=== PATIENT | female | born 1965 | race African-American/Black ===

== ENCOUNTER 2016-12-24 07:08 | Emergency (ER) | payer OTHER ==
[~2016-12-24] VITALS: Ht 172.7 cm; Wt 117.9 kg
--- NOTE | ~2016-12-24 | EKG ---
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 : 1965 Requested By: Randi Ovalle Order Number: [id number] MD: Alfonso Charles Measurements Intervals [place] Rate: 63 P: 16 RI: 197 QRS: 13 QRSD: 93 T: -30 QT: 439 QTc: 450 Interpretive Statements Sinus rhythm Abnormal R-wave progression, early transition Nonspecific T abnormalities, diffuse leads Baseline wander in lead(s) V5 Compared to ECG 06/08/2011 13:16:28 No significant changes Electronically Signed On 12-24-2016 8:07:55 CDT by Alfonso Charles [email or web address] <ELECTRONICALLY SIGNED> By: Alfonso Charles MD 12/24/16806 7 7 Alfonso Charles MD /LILLIAN
[~2016-12-24 07:08] MED LIST: AZITHROMYCIN 2250 MG PO; BACTRIM DS TAB1 EACH PO; NAPROSYN500 MG PO; NO HOME MEDS; NORCO 5-325 TA1 EACH PO; NORFLEX100 MG PO; PERCOCET 5-3251 EACH PO; TUSSIONEX PENN473 ML PO; ULTRAM 50MG TAB50 MG PO; ZOFRAN ODT4 MG PO
[2016-12-24] MEDS ORDERED: NORVASC5 MG PO (07:29)
[2016-12-24] MEDS ORDERED: LOPRESSOR100 M1 PO (07:29)
[2016-12-24] MEDS ORDERED: METFORMIN HCL500 MG PO (07:29)
[2016-12-24] MEDS ORDERED: LOSARTAN POTASS50 MG PO (07:30)
[2016-12-24 07:40] LABS: BASOPHILS 1.3 % (0.0-2.0); HEMATOCRIT 40.5 % (37.0-47.0); HEMOGLOBIN 13.6 gm/dL (12.0-15.0); LYMPHOCYTES 40.7 % (24.0-44.0); MCH 27.2 pg (26.0-34.0); MCHC 33.6 g/dL (28.0-37.0); MCV 80.9 fL (80.0-100.0); MONOCYTES 8.5 % (1.0-8.0); PLATELET COUNT 315 thou/uL (150-400); POLYS 46.5 % (36.0-66.0); RDW 13.6 % (10.5-14.5); WBC 6.4 thou/uL (4.0-11.0)
[2016-12-24 07:51] LABS: ANION GAP 6 mmol/L (7-16); BUN 10 mg/dL (7-18); CHLORIDE 108 mmol/L (98-107); CO2 25 mmol/L (21-32); CREATININE 1.2 mg/dL (0.6-1.0); GLUCOSE 112 mg/dL (74-106); POTASSIUM 3.6 mmol/L (3.5-5.1); SODIUM 139 mmol/L (136-145)
[2016-12-24 07:52] LABS: MANUAL DIFF NO
[2016-12-24 08:00] LABS: TROPONIN-I < 0.04 ng/mL (<0.04-0.07)
[2016-12-24 08:17] LABS: ALBUMIN 3.5 g/dL (3.4-5.0); ALKALINE PHOSPHATASE 103 U/L (46-116); DIRECT BILIRUBIN < 0.1 mg/dL (<0.1-0.3); SGOT 13 U/L (15-37); SGPT 20 U/L (30-65); TOTAL BILIRUBIN 0.3 mg/dL (<0.1-1.0); TOTAL PROTEIN 7.7 g/dL (6.4-8.2)
[2016-12-24 10:01] VITALS: BP 128/87
== END 2016-12-24 10:03 | disposition home or self-care (01) ==
LOC: ER 07:08
PROVIDERS: Emergency Medicine
DX: R07.89 Other chest pain (principal); I10 Essential (primary) hypertension; Z90.710 Acquired absence of both cervix and uterus

== ENCOUNTER 2017-03-23 19:59 | Inpatient (IN) | payer OTHER ==
[~2017-03-23] VITALS: Ht 172.7 cm; Wt 125.6 kg
--- NOTE | ~2017-03-23 | S ---
[facility] [place] [address] SURGICAL PATH RPT PROCEDURE Name: RIAZ CALIX Room #: 437-P DIS IN M.R.#: [id number] Admission: 03/23/17 Date of : 61 Discharge: 03/26/17 Report #: [id number] Path Case #: [id number] PATHOLOGY REPORT COLLECTION DATE: 03/25/2017 RECEIVED DATE: 03/26/2017 SUBMITTING PHYS: Dr. Horace Regan OTHER PHYS: Dr. Sushma Fofana SPECIMEN(S) RECEIVED: A.Bx of polyp at mid ascending colon B.Bx of L colon * * * * * * * * * * * * FINAL DIAGNOSIS: A. Colonic mucosa "biopsy of polyp at mid ascending colon": - Tubular adenoma. - There is no evidence of high grade dysplasia or malignancy. B. Colonic mucosa "biopsy of left colon": - Hyalinized stroma with small tubular gland, with rare cryptitis, mild intramucosal hemorrhage and mild increase in lamina propria inflammation. See comment. COMMENT: The differential includes infectious/ focal active colitis and ischemic colitis There is no evidence of granulomas, adenomatous change or malignancy. Suggest clinical and endoscopic correlation. (MILAGROS:janel; 03/27/2017) PATHOLOGIST: Rudy Mascorro M.D. REPORT ELECTRONICALLY SIGNED BY: Rudy Mascorro M.D. DATE/TIME: 03/27/2017 13:03 * * * * * * * * * * * * GROSS PATHOLOGY: A. Received in formalin labeled "Riaz Calix, BX of polyp at mid ascending colon," is a segment of rivera soft tissue measuring 0.4 cm in maximum dimension. The specimen is submitted entirely in cassette A1. B. Received in formalin labeled "Riaz Calix, BX of left colon," are 5 segments of rivera soft tissue measuring 1.5 x 0.8 x 0.2 cm in aggregate dimensions and ranging from 0.3 to 0.4 cm in maximum [address] [place] [address] SURGICAL PATH RPT PROCEDURE Name: RIAZ CALIX Room #: [address] [place] [address] [place] [facility].#: [id number] Admission: 03/23/17 Date of : 61 Discharge: 03/26/17 Report #: [id number] Path Case #: [id number] dimension. The specimen is submitted entirely in cassette B1. (TSD; 03/26/2017) CLINICAL HISTORY: Pre-OP DX: GI bleed Post-OP DX: Acute colitis, colon polyp INITIAL CPT CODE(S): A; 51555 B; 28038 Professional services performed by [facility] at [address] , [place] [address] Technical services performed by [facility] at [address] [place] [address], [facility] [address] [address]. [facility] [address] [address] PHONE: [phone] DIRECTOR: Mitch Calix M.D. * * * END OF REPORT * * *
--- NOTE | ~2017-03-23 | 2DMMODE ---
[facility] [address] [email or web address] [address] 2 D/M-MODE ECHOCARDIOGRAM Name: RIAZ BOLANOS Room #: 437-P [facility] IN ..#: [id number] Admission: 03/23/17 Attend Phys: Sushma Squires Discharge: Date of : 61 Date of Service: 03/24/17 1605 Report #: [id number] THIS REPORT FOR: //name// APPROVED REPORT Study performed: 03/24/2017 15:23:35 EXAM: Comprehensive 2D, Doppler, and color-flow Echocardiogram Patient Location: Bedside Room #: 437 Status: routine BSA: 2.32 HR: 62 bpm BP: 141/73 mmHg Other Information Study Quality: Fair Indications Diabetes Syncope Hypertension/HDD 2D Dimensions LVEF(%): 75.14 (>50%) IVSd: 13.21 (7-11mm) LVOT Diam: 19.65 (18-24mm) LVDd: 47.12 mm PWd: 12.95 (7-11mm) Ascending Ao: 28.46 (22-36mm) LVDs: 26.42 (25-40mm) Aortic Root: 28.82 mm IVC: 12.00 mm Dubois's LVEF: 75.14 % Aortic Valve AoV Peak Shashi.: 1.40 m/s AO Peak Gr.: 7.82 mmHg LVOT Max P.07 mmHg LVOT Max V: 1.13 m/s AGNIESZKA Vmax: 2.44 cm2 Mitral Valve E/A Ratio: 1.3 MV Decel. Time: 293.88 ms MV E Max Shashi.: 0.65 m/s MV A Shashi.: 0.50 m/s MV PHT: 85.23 ms IVRT: 78.43 ms [facility] [address] [place] [address] 2 D/M-MODE ECHOCARDIOGRAM Name: RIAZ BOLANOS Room #: 437-[facility]..#: [id number] Admission: 03/23/17 Attend Phys: Sushma Squires Discharge: Date of : 61 Date of Service: 03/24/17 1605 Report #: [id number] Pulmonary Valve PV Peak Shashi.: 0.93 m/s PV Peak Gr.: 3.44 mmHg Pulmonary Vein P Vein S: 0.49 m/s P Vein A: 0.24 m/s P Vein D: 0.31 m/s P Vein A Dur.: 110.7 msec P Vein S/D Ratio: 1.58 Tricuspid Valve TR Peak Shashi.: 2.25 m/s TR Peak Gr.: 20.18 mmHg PA Pressure: 25.00 mmHg Left Ventricle The left ventricle is normal size. Mild concentric left ventricular hypertrophy. The left ventricular systolic function is normal. The left ventricular ejection fraction is within the normal range. LVEF is 60-65%. The left ventricular diastolic function is normal. Right Ventricle The right ventricle is normal size. The right ventricular systolic function is normal. Atria The left atrium size is normal. The right atrium size is normal. Aortic Valve The aortic valve is normal in structure. No aortic regurgitation is present. There is no aortic valvular stenosis. Mitral Valve The mitral valve is normal in structure. There is no mitral valve regurgitation noted. No evidence of mitral valve stenosis. Tricuspid Valve The tricuspid valve is normal in structure. There is trace tricuspid regurgitation. The right atrial pressure is estimated at mmHg. There is no pulmonary hypertension. Pulmonic Valve The pulmonary valve is normal in structure. There is no pulmonic valvular regurgitation. [employer] [address] [address] 2 D/M-MODE ECHOCARDIOGRAM Name: RIAZ BOLANOS Room #: 437-P [facility] IN .R.#: [id number] Admission: 03/23/17 Attend Phys: Sushma Squires Discharge: Date of : 61 Date of Service: 03/24/17 1605 Report #: [id number] The aortic root is normal in size. IVC is normal in size and collapses >50% with inspiration. Pericardium There is no pericardial effusion. <Conclusion> The left ventricle is normal size. Mild concentric left ventricular hypertrophy. The left ventricular systolic function is normal. The left ventricular diastolic function is normal. The right ventricle is normal size. The left atrium size is normal. The aortic valve is normal in structure. There is no mitral valve regurgitation noted. There is no pericardial effusion. <ELECTRONICALLY SIGNED> By: Tru Uribe MD 03/24/17 1605 1605 1605 Tru Uribe MD /INF
--- NOTE | ~2017-03-23 | D ---
[facility] [place] [address] [place] [address] DISCHARGE SUMMARY Name: RIAZ BOLANOS Room #: 437-P [facility] IN ..#: [id number] Admission: 03/23/17 Attend Phys: Sushma Squires MD Discharge: 03/26/17 Date of : 61 Report #: [id number] THIS REPORT FOR: //name// CC: Radha Squires DATE OF SERVICE: 03/26/2017 HISTORY OF PRESENT ILLNESS: The patient is a 51-year-old female who developed rectal bleeding while at home. After that, the patient had brief presyncopal episode. Please refer to the admission H and P for details. HOSPITALIZATION COURSE: The patient was hospitalized for rectal bleeding and presyncope. Her symptoms were most likely related due to vasovagal episode. GI team was consulted. Of note, the patient has remained hemodynamically stable, and his hemoglobin and hematocrit has remained normal during the hospitalization. The patient had colonoscopy in 03/25/2017, that showed colon polyp, as well as descending colitis on colonoscopy. CT scan of the abdomen showed no colitis. The patient's symptoms resolved. Currently, her p.o. intake is well established. She will be discharged home on empiric antibiotics, follow up in the GI clinic to follow up on the biopsy result of the polyp. DISCHARGE DIAGNOSES: 1. Rectal bleeding, most likely due to colitis, involving descending colon, seen on the colonoscopy. 2. Colon polyp, status post removal. Biopsy result is pending. 3. Near syncope, likely vasovagal episode. Unremarkable cardiac echo, except that left ventricular hypertrophy. SECONDARY DIAGNOSES: Includes: 1. Diabetes mellitus type 2. 2. Hypertension. DISCHARGE MEDICATIONS: Please refer to the medication reconciliation list. In brief, the patient is to continue her outpatient medications, in addition to Cipro and Flagyl, which the patient will take for 1 week. DISPOSITION: The patient is discharged home. FOLLOWUP PLAN: [facility] [address] [place] [address] DISCHARGE SUMMARY Name: RIAZ BOLANOS Room #: 437-P [facility].#: [id number] Admission: 03/23/17 Attend Phys: Sushma Squires MD Discharge: 03/26/17 Date of : 61 Report #: [id number] 1. Follow up with the primary care physician in 1-2 weeks. 2. Follow up in the GI clinic in about 2 weeks. <ELECTRONICALLY SIGNED> By: Sushma Squires MD 03/27/17 1635 0946 1011 Sushma Squires MD /nt
--- NOTE | ~2017-03-23 | P ---
[facility] [place] [address] PROCEDURE REPORT Name: RIAZ BOLANOS Room #: 437-P [facility] IN .R.#: [id number] Admission: 03/23/17 Attend Phys: Sushma Squires MD Discharge: 03/26/17 Date of : 61 Report #: [id number] THIS REPORT FOR: //name// CC: Jelani Medley BRIEF HISTORY: The patient is a 51-year-old woman who presented with rectal bleeding and possibly vasovagal episode. PREOPERATIVE DIAGNOSIS: Rectal bleeding. POSTOPERATIVE DIAGNOSES: 1. Acute colitis, left colon. 2. Diminutive polyp, mid ascending colon. MEDICATIONS: Deep sedation with propofol per anesthesia. SPECIMEN: 1. Mid ascending colon polyp. 2. Biopsies left colon. ESTIMATED BLOOD LOSS: 3 mL. PROCEDURE: Colonoscopy to cecum and terminal ileum with biopsy. FINDINGS: Prior to propofol sedation, procedure of colonoscopy discussed with the patient as well as potential risks and its complications. She indicates she understands and desires to proceed. DESCRIPTION OF PROCEDURE: With the patient in left lateral decubitus position, digital examination was completed which revealed no abnormalities. Subsequently, the IIIMOBI video colonoscope was introduced in the rectum, advanced under direct vision to the cecum. Done with minimal difficulty. The cecum was identified by the ileocecal valve. I was also able to see the appendiceal orifice. Several attempts were made to enter the terminal ileum. However, due to looping, we could not deeply intubate the ileum, but very briefly did identify a villous pattern consistent with anemia. This very distal segment was normal. At that point, the scope was slowly withdrawn and careful circumferential views obtained. Upon slow withdrawal of the scope, the Prep was good. Mucosa was within normal limits, normal vascular pattern, normal light reflex. As we withdrew the scope, the mucosa was normal. In the mid ascending colon, a diminutive polyp was seen and removed by biopsy. Scope was further withdrawn and no additional neoplastic lesions were seen. However, in the left colon, mostly the descending colon, there were mucosal changes consistent with acute colitis with erythema and friability and some superficial ulcerations, but not deep ulceration. In some areas, there was patchy and other areas was [facility] [address] [place] [address] PROCEDURE REPORT Name: RIAZ BOLANOS Room #: 437-P [facility] IN ..#: [id number] Admission: 03/23/17 Attend Phys: Sushma Squires MD Discharge: 03/26/17 Date of : 61 Report #: [id number] completely circumferential. There was lesser involvement of the sigmoid colon. No involvement of the rectum. Multiple biopsies were obtained. Scope was further withdrawn and no additional mucosal abnormalities were seen. Scope was withdrawn. The rectal polyp and no abnormalities were seen. Upon retroflexion, no abnormalities were seen. Scope was withdrawn. The patient tolerated the procedure well. INSTRUCTIONS TO THE PATIENT AND FAMILY AT THE TIME OF DISCHARGE: The patient presented with rectal bleeding. It was likely a near syncopal episode. Findings are consistent with an acute self-limited process, likely an acute colitis of uncertain etiology. Biopsies were obtained. I doubt this represents idiopathic inflammatory bowel disease. There is not active bleeding at this point in time and I think the likelihood of significant further bleeding is low. We will advance diet. We would anticipate discharge sooner rather than later. Withdrawal time from the cecum was 13 minutes and 2 seconds. <ELECTRONICALLY SIGNED> By: Horace Regan MD 03/28/17 1656 1410 29 Horace Regan MD /nt
--- NOTE | ~2017-03-23 | EKG ---
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 : 1965 Requested By: Juan Dalton Order Number: [id number] MD: Alfonso Charles Measurements Intervals [place] Rate: 62 P: 30 HI: 194 QRS: 15 QRSD: 93 T: 14 QT: 492 QTc: 508 Interpretive Statements Sinus rhythm Nonspecific T abnrm, anterolateral leads Borderline prolonged QT interval Compared to ECG 12/24/2016 07:18:37 T-wave abnormality no longer present Electronically Signed On 03-23-2017 23:41:54 ELECTRICAL TIMING DEVICE CALIBRATOR by Alfonso Charles [email or web address] <ELECTRONICALLY SIGNED> By: Alfonso Charles MD 03/23/17 2341 07 07 Alfonso Charles MD /EPI
[~2017-03-23 19:59] MED LIST changes: +LOPRESSOR100 M1 PO; +LOSARTAN POTASS50 MG PO; +METFORMIN HCL500 MG PO; +NORVASC5 MG PO
[2017-03-23 20:03] VITALS: BP 185/91
[2017-03-23 20:17] LABS: HEMOGLOBIN 13.6 gm/dL (12.0-15.0); MCH 27.6 pg (26.0-34.0); MCHC 33.2 g/dL (28.0-37.0); MCV 83.1 fL (80.0-100.0); RBC 4.93 mil/uL (4.20-5.00); RDW 13.9 % (10.5-14.5); WBC 11.7 thou/uL (4.0-11.0)
[2017-03-23 20:17] LABS: POC CA IONIZED 4.8 mg/dL (4.5-5.3); POC CREATININE 1.2 mg/dL (0.6-1.3); POC HEMOGLOBIN 13.9 g/dL (12.0-15.0); POC POTASSIUM 3.8 mmol/L (3.5-5.1)
[2017-03-23 20:30] LABS: APTT 24.2 Seconds (24.5-32.8); PROTIME 10.7 Seconds (9.3-11.4)
[2017-03-23 20:31] LABS: ANION GAP 8 mmol/L (7-16); BUN 11 mg/dL (7-18); CALCIUM 9.6 mg/dL (8.5-10.1); CHLORIDE 105 mmol/L (98-107); CO2 27 mmol/L (21-32); CREATININE 1.3 mg/dL (0.6-1.0); GLUCOSE 186 mg/dL (74-106); SODIUM 140 mmol/L (136-145)
[2017-03-23 20:40] LABS: TROPONIN-I < 0.04 ng/mL (<0.06)
[2017-03-23 20:49] LABS: URINE BILIRUBIN NEGATIVE (Negative); URINE BLOOD 1+ (Negative); URINE COLOR YELLOW; URINE GLUCOSE-RANDOM* NEGATIVE (Negative); URINE KETONES NEGATIVE (Negative); URINE NITRITE NEGATIVE (Negative); URINE PROTEIN (DIPSTICK) NEGATIVE (Negative); URINE SPECIFIC GRAVITY 1.015 (1.005-1.035); URINE UROBILINOGEN 0.2 E.U./dl (0.2-1.0)
[2017-03-23 21:11] LABS: BACTERIA >30 Many /HPF (None Seen); URINE WBC 0-5 Rare /HPF (0-5)
[2017-03-23 21:14] LABS: CASTS None Seen /LPF (None Seen); CRYSTALS None Seen /LPF (None Seen); SQUAMOUS 4-10 Moderate /LPF (0-3); URINE RBC 0-2 Rare /HPF (0-2)
[2017-03-23 21:16] LABS: TRANSITIONAL EPITHEL CELL 0-3 Few /LPF (None Seen)
[2017-03-23 22:06] VITALS: BP 168/83
[2017-03-23 22:34] VITALS: BP 158/87
[2017-03-23 23:03] VITALS: BP 162/96
[2017-03-24 04:52] LABS: HEMATOCRIT 40.4 % (37.0-47.0); HEMOGLOBIN 13.2 gm/dL (12.0-15.0); MCH 27.1 pg (26.0-34.0); MCHC 32.7 g/dL (28.0-37.0); MCV 82.9 fL (80.0-100.0); RBC 4.88 mil/uL (4.20-5.00); RDW 14.1 % (10.5-14.5); WBC 10.4 thou/uL (4.0-11.0)
[2017-03-24 04:58] VITALS: BP 154/90
[2017-03-24 04:59] LABS: CALCIUM 9.1 mg/dL (8.5-10.1); CREATININE 1.2 mg/dL (0.6-1.0); POTASSIUM 4.2 mmol/L (3.5-5.1)
[2017-03-24 08:41] VITALS: BP 141/73
[2017-03-24 16:40] VITALS: BP 132/82
[2017-03-24 21:28] VITALS: BP 133/76
[2017-03-25 01:14] VITALS: BP 140/79
[2017-03-25 05:58] VITALS: BP 144/84
[2017-03-25 06:20] LABS: ABSOLUTE NEUTROPHILS 4.3 thou/uL (1.4-8.2); BASOPHILS 0.9 % (0.0-2.0); EOSINOPHILS 2.4 % (0.0-3.0); HEMATOCRIT 37.3 % (37.0-47.0); HEMOGLOBIN 12.1 gm/dL (12.0-15.0); LYMPHOCYTES 31.8 % (24.0-44.0); MCHC 32.6 g/dL (28.0-37.0); MCV 82.9 fL (80.0-100.0); MONOCYTES 8.4 % (1.0-8.0); PLATELET COUNT 271 thou/uL (150-400); POLYS 56.5 % (36.0-66.0); RDW 13.9 % (10.5-14.5); WBC 7.7 thou/uL (4.0-11.0)
[2017-03-25 06:29] LABS: MANUAL DIFF NO
[2017-03-25 08:00] VITALS: BP 135/68
[2017-03-25 16:00] VITALS: BP 183/93
[2017-03-25 19:47] VITALS: BP 148/79
[2017-03-26 03:04] VITALS: BP 148/72
[2017-03-26 07:51] VITALS: BP 147/88
[2017-03-26] MEDS ORDERED: CIPRO500 MG PO (09:51)
[2017-03-26] MEDS ORDERED: FLAGYL500 M1 PO (09:51)
[2017-03-26 11:27] VITALS: BP 147/88
== END 2017-03-26 14:32 | disposition home or self-care (01) | DRG 377 ==
LOC: ER 19:59 → 4S 21:45 → EROBS 21:45 → 4S 22:45 → ENTRNSPT 03-26 14:25 → EDTRNSPTSTS 03-26 14:30 → 4S 03-26 14:32
PROVIDERS: Emergency Medicine; Internal Medicine Endocrinology, Diabetes & Metabolism; Nurse Practitioner Acute Care; Physician Assistant
PROC: 0DBK8ZZ Excision of Ascending Colon, Via Natural or Artificial Opening Endoscopic (ICD-10-PCS; principal; 2017-03-25)
PROC: 0DBE8ZX Excision of Large Intestine, Via Natural or Artificial Opening Endoscopic, Diagnostic (ICD-10-PCS; principal; 2017-03-25)
DX: K62.5 Hemorrhage of anus and rectum (principal); G93.40 Encephalopathy, unspecified; N39.0 Urinary tract infection, site not specified; Z68.41 Body mass index [BMI] 40.0-44.9, adult; K52.9 Noninfective gastroenteritis and colitis, unspecified; K63.5 Polyp of colon; E11.9 Type 2 diabetes mellitus without complications; I10 Essential (primary) hypertension; E66.01 Morbid (severe) obesity due to excess calories; Z90.710 Acquired absence of both cervix and uterus; Z87.891 Personal history of nicotine dependence
CPT/HCPCS: 10195; 62110; 62900